=== PATIENT | male | born 1950 | race Caucasian/White ===

== ENCOUNTER 2020-10-09 16:11 | Observation (INO) ==
[2020-10-09] MEDS ORDERED: ASPIRIN 325 MG TABLET PO STA (16:58)
[2020-10-09 17:13] LABS: Basophils # 0.1 10*3/uL (0.0-0.2); Basophils % 0.8 % (0.0-0.8); Eosinophils # 0.3 10*3/uL (0.0-0.87); Eosinophils % 3.2 % (0.00-10.9); Hemoglobin 16.7 GM/DL (14.0-18.0); Immature Granulocytes % 0.3 %; Immature Granulocytes Absolute 0.03 #; Lymphocytes # 3.9 10*3/uL (1.4-4.0); Lymphocytes % 36.9 % (21.2-54.2); Mean Corpuscular HGB Conc 34.1 GM/DL (32-36); Mean Corpuscular Volume 93.5 FL (87-102); Mean Platelet Volume 10.6 FL (9.6-12.0); Monocytes % 12.6 % (1.7-12.7); Neutrophils % 46.2 % (38.7-73.9); Platelet Count 272 T/CUMM (130-400); Red Blood Count 5.24 MC/CUMM (3.8-5.5); Red Cell Distribution Width 13.1 % (9.3-17.3); White Blood Count 10.6 T/CUMM (4-12)
[2020-10-09 17:26] LABS: Albumin 3.4 G/DL (3.4-5.0); Bilirubin,Total 0.6 MG/DL (0.2-1.0); Calcium 9.4 MG/DL (8.5-10.1); Osmolality,Calculated 273.8 MOS/KG (273-304); Total Protein 8.1 G/DL (6.4-8.2)
[2020-10-09] MEDS ORDERED: DEXTROSE 50% 25 GM/50 ML VIAL IV PRN (19:16)
[2020-10-09] MEDS ORDERED: GLUCAGON 1 MG VIAL IM PRN (19:16)
[2020-10-09] MEDS ORDERED: ENOXAPARIN 40 MG/0.4 ML SYRINGE SUBCUT SCH (19:30)
[2020-10-09 20:03] LABS: INR 2.4
[2020-10-09] MEDS: LACTATED RINGERS 1,000 ML IV SCH (20:27)
[2020-10-09 20:35] LABS: PT Patient Result 25.4 SECS (10.5-12.0)
[2020-10-09] MEDS: FAMOTIDINE 20 MG TABLET PO SCH (22:29)
[2020-10-09] MEDS ORDERED: WARFARIN 2 MG TABLET PO SCH (22:30)
[2020-10-10 06:40] LABS: Basophils # 0.1 10*3/uL (0.0-0.2); Basophils % 0.9 % (0.0-0.8); Eosinophils # 0.4 10*3/uL (0.0-0.87); Eosinophils % 4.6 % (0.00-10.9); Hematocrit 45.4 VOL% (42.0-52.0); Hemoglobin 15.2 GM/DL (14.0-18.0); Immature Granulocytes % 0.4 %; Immature Granulocytes Absolute 0.03 #; Lymphocytes # 2.4 10*3/uL (1.4-4.0); Lymphocytes % 30.4 % (21.2-54.2); Mean Corpuscular HGB Conc 33.5 GM/DL (32-36); Mean Platelet Volume 10.7 FL (9.6-12.0); Monocytes % 13.5 % (1.7-12.7); Neutrophils % 50.2 % (38.7-73.9); Platelet Count 222 T/CUMM (130-400); Red Blood Count 4.73 MC/CUMM (3.8-5.5); Red Cell Distribution Width 13.1 % (9.3-17.3); White Blood Count 7.9 T/CUMM (4-12)
[2020-10-10 06:46] LABS: INR 2.2; PT Patient Result 23.7 SECS (10.5-12.0); Partial Thromboplastin Time 37.9 SECS (23.9-33.8)
[2020-10-10 06:59] LABS: Albumin 3.2 G/DL (3.4-5.0); Bilirubin,Total 0.8 MG/DL (0.2-1.0); Calcium 8.9 MG/DL (8.5-10.1); Osmolality,Calculated 280.3 MOS/KG (273-304); Potassium 3.9 MMOL/L (3.5-5.1); Total Protein 6.9 G/DL (6.4-8.2)
[2020-10-10 07:53] VITALS: BP 127/71
[2020-10-10] MEDS ORDERED: METOPROLOL TARTRATE 50 MG TABLET PO SCH (09:00)
[2020-10-10] MEDS ORDERED: ASPIRIN EC 81 MG TABLET PO SCH (09:00)
[2020-10-10] MEDS ORDERED: LOSARTAN/HCTZ 50-12.5 MG TABLET PO SCH (09:00)
[2020-10-10] MEDS ORDERED: GABAPENTIN 100 MG CAPSULE PO SCH (09:00)
[2020-10-10] MEDS ORDERED: ROSUVASTATIN 10 MG TABLET PO SCH (09:00)
[2020-10-10] MEDS: LACTATED RINGERS 1,000 ML IV SCH (09:27)
[2020-10-10] MEDS: FAMOTIDINE 20 MG TABLET PO SCH (09:29)
[2020-10-10] MEDS ORDERED: WARFARIN 3 MG TABLET PO SCH (19:00)
== END 2020-10-10 11:01 | disposition home or self-care (01) ==
LOC: N.EDINP 16:11 → N.ED 16:11 → N.TELES 22:00
PROVIDERS: ADMIT Internal Medicine; ATTEND Internal Medicine